=== PATIENT | male | born 1985 | race Caucasian/White ===

== ENCOUNTER 2016-12-29 10:18 | Emergency (ER) | payer MEDICAID ==
[~2016-12-29] VITALS: Ht 177.8 cm; Wt 88.5 kg
[2016-12-29 10:58] VITALS: BP 119/90
== END 2016-12-29 11:29 | disposition home or self-care (01) ==
LOC: ER 10:18
DX: F41.9 Anxiety disorder, unspecified (principal); Z76.0 Encounter for issue of repeat prescription